=== PATIENT | female | born 1965 | race Caucasian/White ===

== ENCOUNTER 2024-09-01 06:51 | Day surgery (SDC) | payer OTHER ==
[~2024-09-01] VITALS: Ht 157.5 cm; Wt 72.2 kg
[~2024-09-01 06:51] MED LIST: SODIUM CHLORIDE 0.9% 1,000 ML ONE
[2024-09-01] MEDS ORDERED: FentaNYL CITRATE PF 100 MCG/2 ML VIAL ONE (07:29)
[2024-09-01] MEDS ORDERED: MONT-35 PO (07:29)
[2024-09-01] MEDS ORDERED: LOSA-381 PO (07:29)
[2024-09-01] MEDS ORDERED: MIDAZOLAM HCL 2 MG/2 ML VIAL ONE (07:29)
[2024-09-01] MEDS: SODIUM CHLORIDE 0.9% 1,000 ML IV ONE (08:21)
[2024-09-01 09:35] VITALS: PULSE 68; RESP 16; O2SAT 99
[2024-09-01] MEDS ORDERED: MethylPREDNISolone SOD SUCC 125 MG/2 ML VIAL ONE (10:13)
[2024-09-01] MEDS: MethylPREDNISolone SOD SUCC 125 MG/2 ML VIAL IVP ONE (10:15)
[2024-09-01] MEDS ORDERED: LIDOCAINE 4% 50 ML SOLUTION ONE (12:00)
[2024-09-01] MEDS ORDERED: LIDOCAINE 2% 11 ML JELLY ONE (12:00)
[2024-09-01] MEDS ORDERED: BENZOCAINE 20% 50 MCG/SPRAY 57 GM ONE (12:00)
== END 2024-09-01 11:10 | disposition home or self-care (01) ==
LOC: SURGERY 06:51
PROVIDERS: ATTEND Internal Medicine Critical Care Medicine
DX: R05.3 Chronic cough (principal); R04.2 Hemoptysis; J98.09 Other diseases of bronchus, not elsewhere classified; E11.9 Type 2 diabetes mellitus without complications; Z85.21 Personal history of malignant neoplasm of larynx
CPT/HCPCS: 31623; 87206; 87101; 87220; 87070; 88108; 31624; 71045; 87015; J3010; J2250; J2919; J7030; Z7610